=== PATIENT | female | born 1960 | race Hispanic/Latino ===

== ENCOUNTER → 2018-05-19 | Outpatient (CLI) | payer OTHER | END | disposition home or self-care (01) | LOC: RAH 10:08 | PROVIDERS: ATTEND Family Medicine | DX: Z12.31 Encounter for screening mammogram for malignant neoplasm of breast (principal) | CPT/HCPCS: 77067 ==

== ENCOUNTER → 2018-09-24 | Outpatient (CLI) | payer OTHER | END | disposition home or self-care (01) | LOC: RAH 10:53 | PROVIDERS: ATTEND Family Medicine | DX: N63.22 Unspecified lump in the left breast, upper inner quadrant (principal) | CPT/HCPCS: 76641 ==

== ENCOUNTER → 2019-06-05 | Outpatient (CLI) | payer OTHER | END | disposition home or self-care (01) | LOC: RAH 11:15 | PROVIDERS: ATTEND Family Medicine | DX: Z12.31 Encounter for screening mammogram for malignant neoplasm of breast (principal) | CPT/HCPCS: 77067 ==

== ENCOUNTER → 2022-12-12 | Outpatient (CLI) | payer OTHER | END | disposition home or self-care (01) | LOC: RAH 08:49 | PROVIDERS: ATTEND Family Medicine | DX: Z12.31 Encounter for screening mammogram for malignant neoplasm of breast (principal) | CPT/HCPCS: 77067 ==

== ENCOUNTER → 2024-01-13 | Outpatient (CLI) | payer OTHER | END | disposition home or self-care (01) | LOC: SHCH 10:14 | PROVIDERS: ATTEND Internal Medicine Cardiovascular Disease | DX: I51.81 Takotsubo syndrome (principal) | CPT/HCPCS: 93306 ==

== ENCOUNTER → 2024-04-20 | Outpatient (CLI) | payer OTHER ==
--- NOTE | 2024-04-21 08:39 | HMCIMG ---
SCREENING MAMMOGRAM REASON: Annual Exam COMPARISON: 12/12/2022 TECHNIQUE: CC and MLO views of the bilateral breasts were performed.CAD was performed as well. FINDINGS: Parenchymal density: There are scattered areas of fibroglandular density. There are no focal mass lesions. There are a few benign-appearing calcifications which are unchanged. There are no pathologic appearing calcifications. There is no evidence of architectural distortion or skin thickening. IMPRESSION: Stable screening mammogram The patient was entered into a reminder system with a target due date for their next mammogram. BI-RADS CATEGORY 1: NEGATIVE Recommend monthly self breast exam as well as annual clinical examination. A negative x-ray should not delay biopsy if a dominant or clinically suspicious mass is present, since 8-10% of cancers are not identified by mammography. Dense breasts particularly, may obscure an underlying neoplasm. Some of these may be detected clinically and therefore, clinical examination is an essential part of breast evaluation.
== END | disposition home or self-care (01) ==
LOC: RAH 13:26
PROVIDERS: ATTEND Family Medicine
DX: Z12.31 Encounter for screening mammogram for malignant neoplasm of breast (principal); R92.323 Mammographic fibroglandular density, bilateral breasts
CPT/HCPCS: 77067

== ENCOUNTER → 2024-11-20 | Outpatient (CLI) | payer OTHER ==
[~2024-11-20] MED LIST: GADOTERATE MEGLUMINE 10 MMOL/20 ML VIAL IV ONE
--- NOTE | 2024-11-22 12:18 | HMCIMG ---
EXAMINATION: NONCONTRAST MRI OF LEFT HIP. HISTORY: Suspected calcific tendinitis. COMPARISON: None provided. TECHNIQUE: Multiplanar, multisequence MR images of the pelvis and left hip are submitted. FINDINGS: There is normal bone marrow signal without evidence of fracture, avascular necrosis, or osteomyelitis. There is no displaced labral tear appreciated. Left sacroiliac and hip joints are preserved. The musculature of the pelvis, including the piriformis muscles, appear within normal limits. The iliopsoas tendon appears intact. The hamstring origin at the ischial tuberosity is normal. There is no iliopsoas bursitis. Mild left peritrochanteric edema with mild gluteus medius insertional tendinosis. Visualized aspect of the left sciatic nerve appears within normal limits. Urinary bladder is normal. IMPRESSION: 1. Mild left peritrochanteric edema with mild gluteus medius insertional tendinosis. /[place]
== END | disposition home or self-care (01) ==
LOC: RAH 13:14
PROVIDERS: ATTEND Family Medicine
DX: M76.02 Gluteal tendinitis, left hip (principal); R60.0 Localized edema
CPT/HCPCS: 73723; A9575